=== PATIENT | male | born 1970 | race Caucasian/White ===

== ENCOUNTER 2021-07-14 12:46 | Outpatient (CLI) | payer OTHER ==
--- NOTE | 2021-07-14 13:59 | XRay Report ---
CHEST 2 VIEWS INDICATION / CLINICAL INFORMATION: CHECKING FOR TB EXPOSURE. COMPARISON: None available. FINDINGS: SUPPORT DEVICES: None. HEART / MEDIASTINUM: No significant abnormality. LUNGS / PLEURA: No significant pulmonary or pleural abnormality. No pneumothorax. ADDITIONAL FINDINGS: No significant additional findings. IMPRESSION: Unremarkable chest films. No findings to suggest pulmonary tuberculosis. Signer Name: Juan Sung Jr, MD Signed: 07/14/2021 1:55 PM Workstation Name: [id number]
== END 2021-07-14 12:47 | disposition home or self-care (01) ==
LOC: XRAY 12:46
PROVIDERS: ATTEND Family Medicine
DX: R76.11 Nonspecific reaction to tuberculin skin test without active tuberculosis (principal)
CPT/HCPCS: 71046